=== PATIENT | male | born 1935 | race Caucasian/White ===

== ENCOUNTER → 2017-09-26 | Outpatient (CLI) | payer OTHER, BC ==
[~2017-09-26] MED LIST: 24 HOUR ALLER15.8 ML BOTH NARES; ADULT ASPIRIN R81 MG PO; BETIMOL 0.100 DROP/5 BOTH EYES; LEVOTHYROXINE137 MCG PO; OMEGA-3 FISH1000 M1 PO; PRESERVISION A1 EAC2 PO; RANITIDINE HCL300 MG PO; TOPROL XL50 MG PO
== END | disposition home or self-care (01) ==
LOC: AMB 07:52
PROC: 0HB6XZZ Excision of Back Skin, External Approach (ICD-10-PCS; principal; 2017-09-26)
DX: L82.1 Other seborrheic keratosis (principal); Z85.828 Personal history of other malignant neoplasm of skin
CPT/HCPCS: 88305